=== PATIENT | male | born 1955 | race African-American/Black ===

== ENCOUNTER 2019-09-20 18:53 | Inpatient (IN) | payer MEDICARE, MEDICAID ==
[~2019-09-20] VITALS: Ht 180.3 cm; Wt 142.0 kg
[2019-09-20] MEDS ORDERED: MORPHINE SULFATE 4 MG/ML CPJ (NOT FOR IM USE) IV STA (19:56)
[2019-09-20] MEDS ORDERED: ONDANSETRON HCL 4MG/2ML INJ IV STA (19:56)
[2019-09-20] MEDS ORDERED: METRONIDAZOLE 500 MG PREMIX 100 ML IV ONE (20:00)
[2019-09-20] MEDS ORDERED: CLINDAMYCIN 600 MG in DEXTROSE 5% WATER 50 ML IV ONE (20:00)
[2019-09-20 21:44] LABS: BASOPHILS % 0.7 % (0.0-2.0); EOSINOPHILS % 0.6 % (0.0-5.0); HEMATOCRIT. 21.7 % (42.0-52.0); LYMPHOCYTES % 7.3 % (20.0-50.0); MEAN CORPUSCULAR HEMOGLOBIN 26.8 pg (28.0-32.0); MEAN CORPUSCULAR VOLUME 83.4 fL (80.0-94.0); MEAN PLATELET VOLUME 8.1 fl (7.4-10.4); NEUTROPHILS % 84.4 % (40.0-76.0); PLATELET 203 x1000/uL (130-400); RED CELL DISTRIBUTION WIDTH 20.2 % (11.6-14.6)
[2019-09-20 21:48] LABS: PROTHROMBIN TIME 10.7 sec (9.6-11.0)
[2019-09-20 21:52] LABS: CHLORIDE 115 mEq/L (98-107)
[2019-09-20] MEDS ORDERED: CEFTRIAXONE 2 G PREMIX 50 ML IV ONE (22:00)
[2019-09-20 22:01] LABS: ETHANOL BLOOD < 10 mg/dL
[2019-09-20 22:03] LABS: BETA HYDROXYBUTYRATE 0.1 mMol/L (0.0-0.3)
[2019-09-20] MEDS ORDERED: SODIUM CHLORIDE 0.9% 1000ML BAG (SEPSIS BOLUS) IV ONE (22:15)
[2019-09-20] MEDS ORDERED: SODIUM CHLORIDE 0.9% IV SCH (22:30)
[2019-09-20 23:57] LABS: CLARITY URINE CLEAR (CLEAR); COLOR URINE YELLOW (YELLOW); KETONES URINE NEGATIVE (NEGATIVE); LEUKOCYTE ESTERASE URINE NEGATIVE (NEGATIVE); NITRITE URINE NEGATIVE (NEGATIVE); OCCULT BLOOD URINE 1+ (NEGATIVE); PROTEIN URINE 3+ (NEGATIVE); SPECIFIC GRAVITY URINE 1.016 (1.005-1.030); UROBILINOGEN URINE 0.2 E.U./dL (0.2-1.0)
[2019-09-21] VITALS (12 sets, daily range): BP systolic 113–214; BP diastolic 53–123
[2019-09-21 00:17] LABS: *AMPHETAMINES SCREEN URINE NEGATIVE (NEGATIVE); *BARBITURATES SCREEN URINE NEGATIVE (NEGATIVE); *BENZODIAZEPINES SCREEN URINE NEGATIVE (NEGATIVE); *COCAINE SCREEN URINE NEGATIVE (NEGATIVE)
[2019-09-21 00:18] LABS: METHADONE URINE SCREEN NEGATIVE (NEGATIVE); OPIATES URINE SCREEN NEGATIVE (NEGATIVE); PHENCYCLIDINE URINE SCREEN NEGATIVE (NEGATIVE)
[2019-09-21 00:26] LABS: CANNABINOID URINE SCREEN NEGATIVE (NEGATIVE)
[2019-09-21] MEDS ORDERED: DOCUSATE SODIUM 100MG CAPSULE PO PRN (00:45)
[2019-09-21] MEDS ORDERED: MAGNESIUM/ALUMINUM HYDROXIDE/SIMETHICONE 30ML UDC PO PRN (00:45)
[2019-09-21] MEDS ORDERED: CLONIDINE 0.1MG TABLET PO PRN (00:45)
[2019-09-21] MEDS ORDERED: HYDRALAZINE 20MG/ML VIAL IV PRN (00:45)
[2019-09-21] MEDS ORDERED: GUAIFENESIN 200MG/10ML SUGAR FREE UDC PO PRN (00:45)
[2019-09-21] MEDS ORDERED: ACETAMINOPHEN 325MG TABLET PO PRN (00:45)
[2019-09-21] MEDS ORDERED: DIPHENHYDRAMINE 50MG/ML VIAL IV PRN (00:45)
[2019-09-21] MEDS ORDERED: DEXTROSE 50% WATER 50ML SYRINGE IV PRN ×2 (00:45)
[2019-09-21] MEDS ORDERED: ONDANSETRON HCL 4MG/2ML INJ IV PRN (00:45)
[2019-09-21 01:45] LABS: TOTAL IRON BINDING CAPACITY 196 ug/dL (250-450)
[2019-09-21] MEDS: SODIUM CHLORIDE 0.9% INJ 3ML FLUSH IVF SCH ×3 (05:52→21:49)
[2019-09-21] MEDS: CLONIDINE 0.1MG TABLET PO SCH ×3 (05:58→21:49)
[2019-09-21] MEDS: BLOOD SUGAR DIAGNOSTIC STRIP TEST SCH ×4 (07:30→21:48)
[2019-09-21] MEDS: INSULIN LISPRO 100 UNITS/ML SUBCUT SCH ×4 (08:00→21:00)
[2019-09-21] MEDS: IPRATROPIUM/ALBUTEROL 0.5-3(2.5)MG/3ML NEB HHN SCH ×2 (08:51→20:18)
[2019-09-21] MEDS: ENOXAPARIN 30MG/0.3ML SYR SUBCUT SCH (09:10)
[2019-09-21] MEDS ORDERED: PIPERACILLIN/TAZOBACTAM 3.375 G in DEXT 5% WATER 100 ML IV SCH (13:00)
[2019-09-21] MEDS: IPRATROPIUM/ALBUTEROL 0.5-3(2.5)MG/3ML NEB NEB PRN (13:09)
[2019-09-21] MEDS ORDERED: CLONIDINE 0.2MG TABLET PO PRN (14:15)
[2019-09-21] MEDS: PIPERACILLIN/TAZOBACTAM 2.25 G in DEXTROSE 5% WATER 50 ML IV SCH ×2 (14:40→21:49)
[2019-09-21] MEDS ORDERED: FUROSEMIDE 100MG/10ML VIAL IVP SCH (14:43)
[2019-09-21] MEDS ORDERED: METOLAZONE 10MG TABLET PO NR (14:44)
[2019-09-21] MEDS: GUAIFENESIN 600MG ER TABLET PO SCH (21:49)
[2019-09-21] MEDS: FAMOTIDINE 20MG TABLET PO SCH (21:49)
[2019-09-22] VITALS (16 sets, daily range): BP systolic 105–163; BP diastolic 54–84
[2019-09-22] MEDS: IPRATROPIUM/ALBUTEROL 0.5-3(2.5)MG/3ML NEB HHN SCH ×4 (01:54→20:24)
[2019-09-22] MEDS: CLONIDINE 0.1MG TABLET PO SCH ×3 (05:10→21:20)
[2019-09-22] MEDS: PIPERACILLIN/TAZOBACTAM 2.25 G in DEXTROSE 5% WATER 50 ML IV SCH ×3 (05:13→21:19)
[2019-09-22] MEDS: SODIUM CHLORIDE 0.9% INJ 3ML FLUSH IVF SCH ×3 (05:13→20:24)
[2019-09-22] MEDS: BLOOD SUGAR DIAGNOSTIC STRIP TEST SCH ×4 (07:30→20:24)
[2019-09-22] MEDS: INSULIN LISPRO 100 UNITS/ML SUBCUT SCH ×4 (08:00→20:24)
[2019-09-22] MEDS: ENOXAPARIN 30MG/0.3ML SYR SUBCUT SCH (08:47)
[2019-09-22] MEDS: GUAIFENESIN 600MG ER TABLET PO SCH ×2 (08:47→21:21)
[2019-09-22] MEDS: FUROSEMIDE 100MG/10ML VIAL IVP SCH ×2 (08:47→17:37)
[2019-09-22] MEDS ORDERED: METOLAZONE 10MG TABLET PO SCH (09:00)
[2019-09-22 09:04] LABS: BG BASE EXCESS -11.4 mmol/L (-2.0-2.0); BG CARBOXYHEMOGLOBIN 0.2 % (0.5-1.5); BG DEOXYHEMOGLOBIN 2.6 % (0.0-5.0); BG FRACTION INSPIRED OXYGEN 36; BG HCO3 ACT 14.5 mmol/L (22.0-26.0); BG METHEMOGLOBIN 0.4 % (0.0-1.5); BG OXYGEN SATURATION 97.4 % (92.0-98.5); BG OXYHEMOGLOBIN 96.8 % (94.0-97.0); BG PCO2 32.5 mmHg (35.0-45.0); BG PH 7.267 (7.350-7.450); BG PO2 111.1 mmHg (75.0-100.0); BG SAMPLE SITE RIGHT RADIAL; BG TOTAL HEMOGLOBIN 6.7 g/dL (12.0-18.0); BG VENT MODE NASAL CANNULA
[2019-09-22] MEDS: FAMOTIDINE 20MG TABLET PO SCH (21:19)
[2019-09-23] VITALS (8 sets, daily range): BP systolic 140–160; BP diastolic 59–118
[2019-09-23] MEDS: IPRATROPIUM/ALBUTEROL 0.5-3(2.5)MG/3ML NEB HHN SCH ×2 (04:15→08:28)
[2019-09-23] MEDS: SODIUM CHLORIDE 0.9% INJ 3ML FLUSH IVF SCH (05:55)
[2019-09-23] MEDS: CLONIDINE 0.1MG TABLET PO SCH (05:55)
[2019-09-23] MEDS: PIPERACILLIN/TAZOBACTAM 2.25 G in DEXTROSE 5% WATER 50 ML IV SCH (05:58)
[2019-09-23] MEDS: BLOOD SUGAR DIAGNOSTIC STRIP TEST SCH ×2 (07:30→12:28)
[2019-09-23] MEDS: INSULIN LISPRO 100 UNITS/ML SUBCUT SCH ×2 (08:00→12:29)
[2019-09-23 08:10] LABS: *CREATININE RANDOM URINE 67.3 mg/dL (Not Estab.); MICROALBUMIN RANDOM URINE 1479.4 ug/mL (Not Estab.)
[2019-09-23] MEDS: ENOXAPARIN 30MG/0.3ML SYR SUBCUT SCH (09:04)
[2019-09-23] MEDS: FUROSEMIDE 100MG/10ML VIAL IVP SCH (09:04)
[2019-09-23] MEDS: GUAIFENESIN 600MG ER TABLET PO SCH (09:08)
[2019-09-23] MEDS ORDERED: DILTIAZEM HCL 30MG TABLET PO SCH (12:00)
[2019-09-23] MEDS: CITRIC ACID/SODIUM CITRATE SOLN 30ML UDC PO SCH ×2 (12:27→12:29)
[2019-09-23] MEDS: IPRATROPIUM/ALBUTEROL 0.5-3(2.5)MG/3ML NEB NEB PRN (12:32)
== END 2019-09-23 14:25 | disposition left against medical advice (07) | DRG 871 ==
LOC: ER 18:53 → EDBD 18:53 → 5EST 22:57 → EDBEDREQTM 23:01 → EDBEDREQ 23:01 → ENRESERV 09-21 01:31
PROVIDERS: ADMIT Internal Medicine; ATTEND Internal Medicine
PROC: 5A09357 Assistance with Respiratory Ventilation, Less than 24 Consecutive Hours, Continuous Positive Airway Pressure (ICD-10-PCS; principal; 2019-09-20)
PROC: 5A09357 Assistance with Respiratory Ventilation, Less than 24 Consecutive Hours, Continuous Positive Airway Pressure (ICD-10-PCS; 2019-09-21)
DX: A41.9 Sepsis, unspecified organism (principal); J96.00 Acute respiratory failure, unspecified whether with hypoxia or hypercapnia; J69.0 Pneumonitis due to inhalation of food and vomit; E46 Unspecified protein-calorie malnutrition; J84.9 Interstitial pulmonary disease, unspecified; N17.9 Acute kidney failure, unspecified; I42.9 Cardiomyopathy, unspecified; E87.2 Acidosis; I13.0 Hypertensive heart and chronic kidney disease with heart failure and stage 1 through stage 4 chronic kidney disease, or unspecified chronic kidney disease; I50.30 Unspecified diastolic (congestive) heart failure; L97.919 Non-pressure chronic ulcer of unspecified part of right lower leg with unspecified severity; Z68.41 Body mass index [BMI] 40.0-44.9, adult; N18.3 Chronic kidney disease, stage 3 (moderate); I70.203 Unspecified atherosclerosis of native arteries of extremities, bilateral legs; L97.529 Non-pressure chronic ulcer of other part of left foot with unspecified severity; I27.20 Pulmonary hypertension, unspecified; E66.01 Morbid (severe) obesity due to excess calories; E11.22 Type 2 diabetes mellitus with diabetic chronic kidney disease; I87.2 Venous insufficiency (chronic) (peripheral); E11.621 Type 2 diabetes mellitus with foot ulcer; E11.51 Type 2 diabetes mellitus with diabetic peripheral angiopathy without gangrene; E11.42 Type 2 diabetes mellitus with diabetic polyneuropathy; D63.8 Anemia in other chronic diseases classified elsewhere; G47.30 Sleep apnea, unspecified; Z86.73 Personal history of transient ischemic attack (TIA), and cerebral infarction without residual deficits; Z87.01 Personal history of pneumonia (recurrent); Z91.14 Patient's other noncompliance with medication regimen; Z87.891 Personal history of nicotine dependence; Z71.3 Dietary counseling and surveillance
CPT/HCPCS: 36415; 36600; 71045; 76770; 80305; 80320; 81003; 82010; 82043; 82270; 82375; 82570; 82805; 82962; 83036; 83540; 83550; 83605; 83880; 84300; 84484; 93005; 93306; 93970; 94640; 94660; 96365; 96367; 96368; 96375; 99291; J0696; J1650; J1940; J2270; J2405; J2543; J3490; J7060; J7620; G0480

== ENCOUNTER 2019-10-11 14:00 | Inpatient (IN) | payer MEDICARE, MEDICAID ==
[~2019-10-11] VITALS: Ht 180.3 cm; Wt 131.5 kg
[2019-10-11] MEDS ORDERED: LABETALOL 5MG/ML SYR 20 MG/4 ML SYRINGE IV ONE (16:15)
[2019-10-11] MEDS ORDERED: VANCOMYCIN 1 G PREMIX 200 ML IV SCH (18:45)
[2019-10-11] MEDS ORDERED: PIPERACILLIN/TAZ 3.375G PREMIX 50 ML IV ONE (18:45)
[2019-10-11 18:58] LABS: BG BASE EXCESS -5.7 mmol/L (-2.0-2.0); BG CARBOXYHEMOGLOBIN 0.8 % (0.5-1.5); BG DEOXYHEMOGLOBIN 16.7 % (0.0-5.0); BG FRACTION INSPIRED OXYGEN 21; BG HCO3 ACT 18.8 mmol/L (22.0-26.0); BG METHEMOGLOBIN 0.2 % (0.0-1.5); BG OXYGEN SATURATION 83.1 % (92.0-98.5); BG OXYHEMOGLOBIN 82.3 % (94.0-97.0); BG PCO2 32.5 mmHg (35.0-45.0); BG PH 7.379 (7.350-7.450); BG PO2 50.7 mmHg (75.0-100.0); BG SAMPLE SITE RIGHT RADIAL; BG TOTAL HEMOGLOBIN 8.6 g/dL (12.0-18.0); BG VENT MODE ROOM AIR
[2019-10-11 19:36] LABS: BASOPHILS % 2.1 % (0.0-2.0); EOSINOPHILS % 4.8 % (0.0-5.0); HEMATOCRIT. 23.7 % (42.0-52.0); HEMOGLOBIN. 7.6 g/dL (14.0-18.0); LYMPHOCYTES % 16.1 % (20.0-50.0); MEAN CORPUSCULAR VOLUME 84.3 fL (80.0-94.0); MEAN PLATELET VOLUME 7.6 fl (7.4-10.4); MONOCYTES % 13.7 % (2.0-8.0); NEUTROPHILS % 63.3 % (40.0-76.0); PLATELET 293 x1000/uL (130-400); RED BLOOD CELL COUNT 2.81 mill/uL (4.7-6.1)
[2019-10-11 19:40] LABS: CHLORIDE 111 mEq/L (98-107)
[2019-10-11 19:42] LABS: INR 1.2; PROTHROMBIN TIME 11.9 sec (9.6-11.0)
[2019-10-11 19:46] LABS: PHOSPHORUS 5.9 mg/dL (2.5-4.9)
[2019-10-11] MEDS ORDERED: CLONIDINE 0.2MG TABLET PO ONE (20:30)
[2019-10-11] MEDS ORDERED: DEXTROSE 50% WATER 50ML SYRINGE IV ONE (21:00)
[2019-10-11] MEDS ORDERED: LABETALOL 5MG/ML SYR 20 MG/4 ML SYRINGE IV SCH (22:15)
[2019-10-11] MEDS ORDERED: LORAZEPAM 2MG/ML CPJ IV PRN (23:00)
[2019-10-11] MEDS ORDERED: HYDROCODONE/ACETAMINOPHEN 5/325MG TABLET PO PRN (23:00)
[2019-10-11] MEDS ORDERED: MORPHINE SULFATE 2 MG/ML CPJ (NOT FOR IM USE) IV PRN (23:00)
[2019-10-11] MEDS ORDERED: ONDANSETRON HCL 4MG/2ML INJ IV PRN (23:00)
[2019-10-11] MEDS ORDERED: CLONIDINE 0.1MG TABLET PO PRN (23:00)
[2019-10-11 23:24] VITALS: BP 158/97
[2019-10-12] VITALS (14 sets, daily range): BP systolic 128–175; BP diastolic 50–103
[2019-10-12] MEDS: AMLODIPINE 10MG TABLET PO SCH ×2 (00:49→09:00)
[2019-10-12] MEDS: THIAMINE HCL 100MG TABLET PO SCH ×2 (00:49→09:00)
[2019-10-12] MEDS ORDERED: ONDANSETRON HCL 4MG/2ML INJ IV PRN (01:15)
[2019-10-12] MEDS ORDERED: MAGNESIUM/ALUMINUM HYDROXIDE/SIMETHICONE 30ML UDC PO PRN (01:15)
[2019-10-12] MEDS ORDERED: CLONIDINE 0.2MG TABLET PO PRN (01:15)
[2019-10-12] MEDS ORDERED: ACETAMINOPHEN 325MG TABLET PO PRN (01:15)
[2019-10-12] MEDS ORDERED: DIPHENHYDRAMINE 50MG/ML VIAL IV PRN (01:15)
[2019-10-12] MEDS ORDERED: LORAZEPAM 2MG/ML CPJ IV PRN (01:15)
[2019-10-12] MEDS ORDERED: DEXTROSE 50% WATER 50ML SYRINGE IV PRN (01:15)
[2019-10-12] MEDS ORDERED: GUAIFENESIN 200MG/10ML SUGAR FREE UDC PO PRN (01:15)
[2019-10-12] MEDS ORDERED: IPRATROPIUM/ALBUTEROL 0.5-3(2.5)MG/3ML NEB NEB PRN (01:15)
[2019-10-12] MEDS ORDERED: HYDRALAZINE 20MG/ML VIAL IV PRN (01:15)
[2019-10-12] MEDS: IPRATROPIUM/ALBUTEROL 0.5-3(2.5)MG/3ML NEB NEB PRN ×3 (04:34→23:54)
[2019-10-12] MEDS: DILTIAZEM HCL 30MG TABLET PO SCH ×3 (05:16→18:38)
[2019-10-12] MEDS: SODIUM CHLORIDE 0.9% INJ 3ML FLUSH IVF SCH ×3 (05:18→22:18)
[2019-10-12] MEDS: BLOOD SUGAR DIAGNOSTIC STRIP TEST SCH ×4 (07:30→22:30)
[2019-10-12] MEDS: INSULIN LISPRO 100 UNITS/ML SUBCUT SCH ×4 (08:00→21:00)
[2019-10-12] MEDS: CALCIUM ACETATE 667MG CAPSULE PO SCH ×3 (08:00→18:35)
[2019-10-12] MEDS: ENOXAPARIN 40MG/0.4ML SYR SUBCUT SCH (09:00)
[2019-10-12] MEDS: FOLIC ACID/VITAMIN B COMP W-C TABLET PO SCH (09:00)
[2019-10-12] MEDS: OLANZAPINE 5MG TABLET PO SCH ×2 (09:00→17:00)
[2019-10-12] MEDS: HYDRALAZINE HCL 50MG TABLET PO SCH ×2 (09:00→21:52)
[2019-10-12] MEDS ORDERED: HEPARIN SODIUM 1,000 UNIT/1ML VIAL IV NR (10:45)
[2019-10-12 11:03] LABS: CREATINE KINASE MB FRACTION 4.6 ng/mL (0.5-3.6)
[2019-10-12] MEDS: IPRATROPIUM/ALBUTEROL 0.5-3(2.5)MG/3ML NEB HHN SCH ×2 (12:10→14:47)
[2019-10-12] MEDS ORDERED: FAMOTIDINE 20MG TABLET PO SCH (21:00)
[2019-10-13] VITALS (7 sets, daily range): BP systolic 133–168; BP diastolic 75–92
[2019-10-13] MEDS: IPRATROPIUM/ALBUTEROL 0.5-3(2.5)MG/3ML NEB HHN SCH ×3 (03:50→14:35)
[2019-10-13] MEDS: SODIUM CHLORIDE 0.9% INJ 3ML FLUSH IVF SCH (06:00)
[2019-10-13] MEDS: DILTIAZEM HCL 30MG TABLET PO SCH ×4 (06:00→17:06)
[2019-10-13] MEDS: BLOOD SUGAR DIAGNOSTIC STRIP TEST SCH ×3 (07:30→16:55)
[2019-10-13] MEDS: INSULIN LISPRO 100 UNITS/ML SUBCUT SCH ×2 (08:00→12:10)
[2019-10-13] MEDS: CALCIUM ACETATE 667MG CAPSULE PO SCH ×3 (08:51→17:06)
[2019-10-13] MEDS: FOLIC ACID/VITAMIN B COMP W-C TABLET PO SCH (08:51)
[2019-10-13] MEDS: AMLODIPINE 10MG TABLET PO SCH (08:51)
[2019-10-13] MEDS: HYDRALAZINE HCL 50MG TABLET PO SCH (08:51)
[2019-10-13] MEDS: THIAMINE HCL 100MG TABLET PO SCH (08:51)
[2019-10-13] MEDS: OLANZAPINE 5MG TABLET PO SCH ×2 (08:51→17:06)
[2019-10-13] MEDS: ENOXAPARIN 40MG/0.4ML SYR SUBCUT SCH (08:54)
== END 2019-10-13 17:15 | disposition left against medical advice (07) | DRG 291 ==
LOC: ER 14:00 → CANBEDREQ 17:29 → 5EST 20:04 → EDBEDREQ 20:16 → EDBEDREQSVC 20:16 → EDBEDREQTM 20:16 → ENRESERV 20:21
PROVIDERS: ADMIT Internal Medicine Nephrology; ATTEND Internal Medicine Nephrology
DX: I13.2 Hypertensive heart and chronic kidney disease with heart failure and with stage 5 chronic kidney disease, or end stage renal disease (principal); I50.33 Acute on chronic diastolic (congestive) heart failure; J96.90 Respiratory failure, unspecified, unspecified whether with hypoxia or hypercapnia; N18.6 End stage renal disease; L97.909 Non-pressure chronic ulcer of unspecified part of unspecified lower leg with unspecified severity; N17.9 Acute kidney failure, unspecified; E46 Unspecified protein-calorie malnutrition; Z68.41 Body mass index [BMI] 40.0-44.9, adult; E11.22 Type 2 diabetes mellitus with diabetic chronic kidney disease; D63.8 Anemia in other chronic diseases classified elsewhere; E11.51 Type 2 diabetes mellitus with diabetic peripheral angiopathy without gangrene; E66.01 Morbid (severe) obesity due to excess calories; F60.0 Paranoid personality disorder; I89.0 Lymphedema, not elsewhere classified; L30.9 Dermatitis, unspecified; E11.42 Type 2 diabetes mellitus with diabetic polyneuropathy; I87.8 Other specified disorders of veins; F99 Mental disorder, not otherwise specified; E11.622 Type 2 diabetes mellitus with other skin ulcer; Z53.29 Procedure and treatment not carried out because of patient's decision for other reasons; Z86.73 Personal history of transient ischemic attack (TIA), and cerebral infarction without residual deficits; Z87.891 Personal history of nicotine dependence; Z91.15 Patient's noncompliance with renal dialysis; Z91.19 Patient's noncompliance with other medical treatment and regimen; Z99.2 Dependence on renal dialysis; Z87.01 Personal history of pneumonia (recurrent); Z79.899 Other long term (current) drug therapy
CPT/HCPCS: 36415; 36600; 71045; 82375; 82550; 82553; 82805; 82962; 83735; 83880; 84100; 84484; 93005; 96365; 99291; J0360; J1644; J1650; J2543; J3370; J3490; J7620

== ENCOUNTER 2019-10-22 18:09 | Inpatient (IN) | payer MEDICARE, MEDICAID ==
[~2019-10-22] VITALS: Ht 180.3 cm; Wt 128.4 kg
[2019-10-22 21:01] LABS: BASOPHILS % 1.3 % (0.0-2.0); LYMPHOCYTES % 11.1 % (20.0-50.0); MEAN CORPUSCULAR HEMOGLOBIN 26.7 pg (28.0-32.0); MEAN CORPUSCULAR VOLUME 82.2 fL (80.0-94.0); MEAN PLATELET VOLUME 7.3 fl (7.4-10.4); MONOCYTES % 6.8 % (2.0-8.0); NEUTROPHILS % 79.8 % (40.0-76.0); PLATELET 194 x1000/uL (130-400); RED BLOOD CELL COUNT 2.59 mill/uL (4.7-6.1); RED CELL DISTRIBUTION WIDTH 18.6 % (11.6-14.6)
[2019-10-22 21:09] LABS: CHLORIDE 117 mEq/L (98-107)
[2019-10-22 21:10] LABS: HEMOGLOBIN. 6.9 g/dL (14.0-18.0)
[2019-10-22 21:11] LABS: HEMATOCRIT. 21.3 % (42.0-52.0)
[2019-10-22] MEDS ORDERED: DEXTROSE 50% WATER 50ML SYRINGE IV ONE (21:45)
[2019-10-22] MEDS ORDERED: ALBUTEROL (0.083%) 2.5MG/3ML NEB HHN ONE (21:45)
[2019-10-22] MEDS ORDERED: INSULIN REGULAR (HUMULIN R) 300UNITS/3ML IV ONE (21:45)
[2019-10-22] MEDS ORDERED: SODIUM BICARBONATE 8.4% 1 MEQ/ML 50ML SYR IV ONE (21:45)
[2019-10-22] MEDS ORDERED: SODIUM POLYSTYRENE SULFONATE 15 G/60 ML BOT PO ONE (21:45)
[2019-10-22 21:53] LABS: CLARITY URINE CLEAR (CLEAR); COLOR URINE YELLOW (YELLOW); KETONES URINE NEGATIVE (NEGATIVE); LEUKOCYTE ESTERASE URINE NEGATIVE (NEGATIVE); NITRITE URINE NEGATIVE (NEGATIVE); OCCULT BLOOD URINE 1+ (NEGATIVE); PH URINE 5.5 (4.5-8.0); PROTEIN URINE 3+ (NEGATIVE); SPECIFIC GRAVITY URINE 1.015 (1.005-1.030); UROBILINOGEN URINE 0.2 E.U./dL (0.2-1.0)
[2019-10-22] MEDS ORDERED: ALBUTEROL (0.083%) 2.5MG/3ML NEB ONE (22:13)
[2019-10-22] MEDS ORDERED: CLONIDINE 0.1MG TABLET PO ONE (22:15)
[2019-10-22] MEDS ORDERED: NITROGLYCERIN OINT 1GM/INCH UDPKT TD ONE (22:15)
[2019-10-22] MEDS ORDERED: INSULIN REGULAR (HUMULIN R) 300UNITS/3ML IV SCH (23:15)
[2019-10-23] MEDS ORDERED: DIPHENHYDRAMINE 50MG/ML VIAL IV PRN (02:30)
[2019-10-23] MEDS ORDERED: ONDANSETRON HCL 4MG/2ML INJ IV PRN (02:30)
[2019-10-23] MEDS ORDERED: MAGNESIUM/ALUMINUM HYDROXIDE/SIMETHICONE 30ML UDC PO PRN (02:30)
[2019-10-23] MEDS ORDERED: ACETAMINOPHEN 325MG TABLET PO PRN (02:30)
[2019-10-23] MEDS ORDERED: LORAZEPAM 0.5MG TABLET PO PRN (02:30)
[2019-10-23] MEDS ORDERED: DEXTROSE 50% WATER 50ML SYRINGE IV PRN (02:30)
[2019-10-23] MEDS: CLONIDINE 0.1MG TABLET PO PRN (05:38)
[2019-10-23] MEDS: SODIUM CHLORIDE 0.9% INJ 3ML FLUSH IVF SCH ×3 (06:00→21:40)
[2019-10-23 06:20] VITALS: BP 179/95
[2019-10-23] MEDS: BLOOD SUGAR DIAGNOSTIC STRIP TEST SCH ×4 (07:40→21:38)
[2019-10-23 08:00] VITALS: BP 181/102
[2019-10-23] MEDS: INSULIN LISPRO 100 UNITS/ML SUBCUT SCH ×4 (08:10→21:00)
[2019-10-23] MEDS: CALCIUM ACETATE 667MG CAPSULE PO SCH ×4 (08:10→17:53)
[2019-10-23] MEDS: HYDRALAZINE HCL 50MG TABLET PO SCH ×2 (09:17→21:39)
[2019-10-23] MEDS: OLANZAPINE 5MG TABLET PO SCH ×2 (09:18→17:00)
[2019-10-23] MEDS: IPRATROPIUM/ALBUTEROL 0.5-3(2.5)MG/3ML NEB NEB PRN ×2 (11:49→16:09)
[2019-10-23 16:00] VITALS: BP 150/84
[2019-10-23 20:00] VITALS: BP 135/89
[2019-10-24] VITALS (7 sets, daily range): BP systolic 118–158; BP diastolic 68–90
[2019-10-24] MEDS: INSULIN LISPRO 100 UNITS/ML SUBCUT SCH ×4 (08:10→20:48)
[2019-10-24] MEDS: CALCIUM ACETATE 667MG CAPSULE PO SCH ×4 (08:10→17:51)
[2019-10-24] MEDS: BLOOD SUGAR DIAGNOSTIC STRIP TEST SCH ×4 (08:26→20:49)
[2019-10-24] MEDS: OLANZAPINE 5MG TABLET PO SCH ×2 (08:55→16:18)
[2019-10-24] MEDS: HYDRALAZINE HCL 50MG TABLET PO SCH ×2 (08:55→20:49)
[2019-10-24 10:24] LABS: CHLORIDE 110 mEq/L (98-107)
[2019-10-24 10:39] LABS: HEMATOCRIT 21.8 % (42.0-52.0)
[2019-10-24] MEDS ORDERED: HEPARIN SODIUM 1,000 UNIT/1ML VIAL IV SCH (11:15)
[2019-10-24] MEDS: SODIUM CHLORIDE 0.9% INJ 3ML FLUSH IVF SCH ×2 (14:00→21:03)
[2019-10-25] VITALS: BP 107/68
[2019-10-25] MEDS: SODIUM CHLORIDE 0.9% INJ 3ML FLUSH IVF SCH ×2 (05:31→21:59)
[2019-10-25] MEDS: BLOOD SUGAR DIAGNOSTIC STRIP TEST SCH ×4 (07:59→21:00)
[2019-10-25 08:00] VITALS: BP 143/72
[2019-10-25] MEDS: INSULIN LISPRO 100 UNITS/ML SUBCUT SCH ×4 (08:10→21:00)
[2019-10-25] MEDS: CALCIUM ACETATE 667MG CAPSULE PO SCH ×4 (08:10→17:48)
[2019-10-25 08:24] LABS: PHOSPHORUS 4.3 mg/dL (2.5-4.9)
[2019-10-25 08:26] LABS: BASOPHILS % 1.2 % (0.0-2.0); EOSINOPHILS % 2.3 % (0.0-5.0); HEMATOCRIT. 21.9 % (42.0-52.0); HEMOGLOBIN. 7.2 g/dL (14.0-18.0); LYMPHOCYTES % 12.2 % (20.0-50.0); MEAN CORPUSCULAR HEMOGLOBIN 27.4 pg (28.0-32.0); MEAN CORPUSCULAR VOLUME 82.9 fL (80.0-94.0); MEAN PLATELET VOLUME 8.2 fl (7.4-10.4); MONOCYTES % 11.4 % (2.0-8.0); NEUTROPHILS % 72.9 % (40.0-76.0); PLATELET 143 x1000/uL (130-400); RED BLOOD CELL COUNT 2.64 mill/uL (4.7-6.1); RED CELL DISTRIBUTION WIDTH 18.9 % (11.6-14.6)
[2019-10-25] MEDS: OLANZAPINE 5MG TABLET PO SCH ×3 (09:00→17:00)
[2019-10-25] MEDS: HYDRALAZINE HCL 50MG TABLET PO SCH ×2 (09:48→22:00)
[2019-10-25 12:00] VITALS: BP 120/58
[2019-10-25 20:00] VITALS: BP 148/85
[2019-10-25] MEDS: IPRATROPIUM/ALBUTEROL 0.5-3(2.5)MG/3ML NEB NEB PRN (23:56)
[2019-10-26] VITALS: BP 156/84
[2019-10-26] MEDS: SODIUM CHLORIDE 0.9% INJ 3ML FLUSH IVF SCH ×3 (06:00→21:04)
[2019-10-26] MEDS: BLOOD SUGAR DIAGNOSTIC STRIP TEST SCH ×4 (06:45→21:00)
[2019-10-26] MEDS: INSULIN LISPRO 100 UNITS/ML SUBCUT SCH ×4 (07:17→21:00)
[2019-10-26 08:00] VITALS: BP 153/73
[2019-10-26] MEDS: OLANZAPINE 5MG TABLET PO SCH ×2 (09:17→19:05)
[2019-10-26] MEDS: HYDRALAZINE HCL 50MG TABLET PO SCH ×2 (09:18→21:01)
[2019-10-26] MEDS: CALCIUM ACETATE 667MG CAPSULE PO SCH ×3 (09:18→18:10)
[2019-10-26 12:00] VITALS: BP 140/70
[2019-10-26 16:00] VITALS: BP 187/101
[2019-10-26] MEDS: HYDRALAZINE 20MG/ML VIAL IV PRN (19:13)
[2019-10-26 20:00] VITALS: BP 159/88
[2019-10-27] VITALS: BP 153/79
[2019-10-27 04:00] VITALS: BP 134/83
[2019-10-27] MEDS: SODIUM CHLORIDE 0.9% INJ 3ML FLUSH IVF SCH ×3 (06:29→21:59)
[2019-10-27] MEDS: BLOOD SUGAR DIAGNOSTIC STRIP TEST SCH ×4 (07:40→21:00)
[2019-10-27 08:00] VITALS: BP 132/84
[2019-10-27] MEDS: INSULIN LISPRO 100 UNITS/ML SUBCUT SCH ×4 (08:10→21:00)
[2019-10-27] MEDS: CALCIUM ACETATE 667MG CAPSULE PO SCH ×3 (08:41→18:16)
[2019-10-27] MEDS: OLANZAPINE 5MG TABLET PO SCH ×2 (08:41→18:16)
[2019-10-27] MEDS: HYDRALAZINE HCL 50MG TABLET PO SCH ×2 (08:41→21:58)
[2019-10-27 12:00] VITALS: BP 141/80
[2019-10-27 15:04] LABS: CHLORIDE 108 mEq/L (98-107)
[2019-10-27 15:12] LABS: EOSINOPHILS % 2.7 % (0.0-5.0); HEMATOCRIT. 23.3 % (42.0-52.0); HEMOGLOBIN. 7.5 g/dL (14.0-18.0); LYMPHOCYTES % 14.1 % (20.0-50.0); MEAN CORPUSCULAR HEMOGLOBIN 27.1 pg (28.0-32.0); MEAN CORPUSCULAR VOLUME 84.2 fL (80.0-94.0); MEAN PLATELET VOLUME 8.3 fl (7.4-10.4); MONOCYTES % 11.5 % (2.0-8.0); NEUTROPHILS % 70.7 % (40.0-76.0); PLATELET 140 x1000/uL (130-400); RED BLOOD CELL COUNT 2.76 mill/uL (4.7-6.1); RED CELL DISTRIBUTION WIDTH 18.9 % (11.6-14.6)
[2019-10-27 16:00] VITALS: BP 147/83
[2019-10-27 20:00] VITALS: BP 168/76
[2019-10-28] VITALS: BP 160/80
[2019-10-28 04:00] VITALS: BP 154/82
[2019-10-28] MEDS: SODIUM CHLORIDE 0.9% INJ 3ML FLUSH IVF SCH ×3 (06:14→21:58)
[2019-10-28] MEDS: BLOOD SUGAR DIAGNOSTIC STRIP TEST SCH ×4 (07:40→21:58)
[2019-10-28] MEDS: INSULIN LISPRO 100 UNITS/ML SUBCUT SCH ×4 (08:10→22:02)
[2019-10-28] MEDS: CALCIUM ACETATE 667MG CAPSULE PO SCH ×4 (08:59→18:25)
[2019-10-28] MEDS: OLANZAPINE 5MG TABLET PO SCH ×2 (08:59→18:25)
[2019-10-28] MEDS: HYDRALAZINE HCL 50MG TABLET PO SCH ×2 (08:59→21:57)
[2019-10-28 18:00] VITALS: BP 141/85
[2019-10-28 20:00] VITALS: BP 185/93
[2019-10-28] MEDS: CLONIDINE 0.1MG TABLET PO PRN (21:57)
[2019-10-29] VITALS: BP 169/93
[2019-10-29 04:00] VITALS: BP 183/87
[2019-10-29] MEDS: BLOOD SUGAR DIAGNOSTIC STRIP TEST SCH ×4 (07:40→21:00)
[2019-10-29] MEDS: INSULIN LISPRO 100 UNITS/ML SUBCUT SCH ×4 (07:45→21:00)
[2019-10-29 08:00] VITALS: BP 180/80
[2019-10-29] MEDS: CALCIUM ACETATE 667MG CAPSULE PO SCH ×4 (08:10→17:39)
[2019-10-29] MEDS: HYDRALAZINE HCL 50MG TABLET PO SCH ×2 (09:00→22:19)
[2019-10-29] MEDS: OLANZAPINE 5MG TABLET PO SCH ×2 (09:27→17:00)
[2019-10-29 12:00] VITALS: BP 166/65
[2019-10-29] MEDS: SODIUM CHLORIDE 0.9% INJ 3ML FLUSH IVF SCH ×2 (13:51→22:19)
[2019-10-29 14:06] LABS: BASOPHILS % 0.9 % (0.0-2.0); EOSINOPHILS % 3.4 % (0.0-5.0); HEMATOCRIT. 26.5 % (42.0-52.0); HEMOGLOBIN. 8.4 g/dL (14.0-18.0); LYMPHOCYTES % 15.1 % (20.0-50.0); MEAN CORPUSCULAR HEMOGLOBIN 26.8 pg (28.0-32.0); MEAN CORPUSCULAR VOLUME 84.3 fL (80.0-94.0); MEAN PLATELET VOLUME 7.9 fl (7.4-10.4); MONOCYTES % 14.3 % (2.0-8.0); NEUTROPHILS % 66.3 % (40.0-76.0); PLATELET 134 x1000/uL (130-400); RED BLOOD CELL COUNT 3.15 mill/uL (4.7-6.1); RED CELL DISTRIBUTION WIDTH 18.7 % (11.6-14.6)
[2019-10-29 14:20] LABS: PHOSPHORUS 4.8 mg/dL (2.5-4.9)
[2019-10-29 16:00] VITALS: BP 175/92
[2019-10-29 20:00] VITALS: BP 186/90
[2019-10-29] MEDS: CLONIDINE 0.1MG TABLET PO PRN (22:19)
[2019-10-30 04:00] VITALS: BP 140/82
[2019-10-30] MEDS: SODIUM CHLORIDE 0.9% INJ 3ML FLUSH IVF SCH ×3 (06:52→21:31)
[2019-10-30] MEDS: BLOOD SUGAR DIAGNOSTIC STRIP TEST SCH (06:57)
[2019-10-30] MEDS: INSULIN LISPRO 100 UNITS/ML SUBCUT SCH (06:58)
[2019-10-30 08:00] VITALS: BP 177/93
[2019-10-30] MEDS: CALCIUM ACETATE 667MG CAPSULE PO SCH ×3 (09:21→16:44)
[2019-10-30] MEDS: HYDRALAZINE HCL 50MG TABLET PO SCH ×2 (09:22→21:31)
[2019-10-30] MEDS: OLANZAPINE 5MG TABLET PO SCH ×2 (09:22→16:43)
[2019-10-30] MEDS: CLONIDINE 0.1MG TABLET PO PRN (14:59)
[2019-10-30 16:00] VITALS: BP 191/93
[2019-10-30] MEDS: HYDRALAZINE 20MG/ML VIAL IV PRN (16:40)
[2019-10-30 20:00] VITALS: BP 135/86
[2019-10-31] VITALS: BP 132/62
[2019-10-31 04:00] VITALS: BP 149/72
[2019-10-31] MEDS: SODIUM CHLORIDE 0.9% INJ 3ML FLUSH IVF SCH ×3 (06:56→21:12)
[2019-10-31 08:00] VITALS: BP 166/90
[2019-10-31] MEDS: CALCIUM ACETATE 667MG CAPSULE PO SCH ×4 (08:10→16:32)
[2019-10-31] MEDS: HYDRALAZINE HCL 50MG TABLET PO SCH ×2 (09:00→21:09)
[2019-10-31] MEDS: OLANZAPINE 5MG TABLET PO SCH ×2 (09:25→16:32)
[2019-10-31 11:46] LABS: BASOPHILS % 1.3 % (0.0-2.0); EOSINOPHILS % 3.2 % (0.0-5.0); HEMATOCRIT. 21.8 % (42.0-52.0); HEMOGLOBIN. 7.1 g/dL (14.0-18.0); LYMPHOCYTES % 16.4 % (20.0-50.0); MEAN CORPUSCULAR HEMOGLOBIN 27.2 pg (28.0-32.0); MEAN CORPUSCULAR VOLUME 83.6 fL (80.0-94.0); MEAN PLATELET VOLUME 8.3 fl (7.4-10.4); MONOCYTES % 12.8 % (2.0-8.0); NEUTROPHILS % 66.3 % (40.0-76.0); PLATELET 123 x1000/uL (130-400); RED BLOOD CELL COUNT 2.61 mill/uL (4.7-6.1); RED CELL DISTRIBUTION WIDTH 18.9 % (11.6-14.6)
[2019-10-31 12:00] VITALS: BP 165/85
[2019-10-31 12:07] LABS: PHOSPHORUS 4.1 mg/dL (2.5-4.9)
[2019-10-31 17:11] VITALS: BP 153/82
[2019-10-31 20:00] VITALS: BP 145/76
[2019-11-01] VITALS: BP 142/68
[2019-11-01 04:00] VITALS: BP 177/86
[2019-11-01] MEDS: SODIUM CHLORIDE 0.9% INJ 3ML FLUSH IVF SCH ×3 (06:03→21:30)
[2019-11-01 08:00] VITALS: BP 164/90
[2019-11-01] MEDS: CALCIUM ACETATE 667MG CAPSULE PO SCH ×4 (08:10→18:10)
[2019-11-01] MEDS: OLANZAPINE 5MG TABLET PO SCH ×2 (08:55→17:25)
[2019-11-01] MEDS: HYDRALAZINE HCL 50MG TABLET PO SCH ×2 (08:55→21:30)
[2019-11-01 12:00] VITALS: BP 193/91
[2019-11-01 20:00] VITALS: BP 159/72
[2019-11-02] VITALS: BP 156/82
[2019-11-02 04:00] VITALS: BP 170/82
[2019-11-02] MEDS: SODIUM CHLORIDE 0.9% INJ 3ML FLUSH IVF SCH ×2 (05:17→14:00)
[2019-11-02] MEDS: HYDRALAZINE 20MG/ML VIAL IV PRN ×2 (05:17→18:37)
[2019-11-02 08:00] VITALS: BP 164/74
[2019-11-02] MEDS: OLANZAPINE 5MG TABLET PO SCH ×2 (08:24→09:14)
[2019-11-02] MEDS: HYDRALAZINE HCL 50MG TABLET PO SCH (08:24)
[2019-11-02] MEDS: CALCIUM ACETATE 667MG CAPSULE PO SCH ×3 (08:24→18:10)
[2019-11-02 12:00] VITALS: BP 177/100
[2019-11-02 16:00] VITALS: BP 169/89
[2019-11-02] MEDS: CLONIDINE 0.1MG TABLET PO PRN (17:32)
[2019-11-02 18:50] VITALS: BP 133/73
== END 2019-11-02 19:18 | disposition home or self-care (01) | DRG 291 ==
LOC: ER 18:09 → 7WST 22:26 → ENRESERV 10-23 03:16
PROVIDERS: ADMIT Internal Medicine; ATTEND Internal Medicine
PROC: 30233N1 Transfusion of Nonautologous Red Blood Cells into Peripheral Vein, Percutaneous Approach (ICD-10-PCS; principal; 2019-10-24)
PROC: 5A1D70Z Performance of Urinary Filtration, Intermittent, Less than 6 Hours Per Day (ICD-10-PCS; 2019-10-24)
PROC: 5A1D70Z Performance of Urinary Filtration, Intermittent, Less than 6 Hours Per Day (ICD-10-PCS; 2019-10-25)
PROC: 5A1D70Z Performance of Urinary Filtration, Intermittent, Less than 6 Hours Per Day (ICD-10-PCS; 2019-10-27)
PROC: 5A1D70Z Performance of Urinary Filtration, Intermittent, Less than 6 Hours Per Day (ICD-10-PCS; 2019-10-29)
PROC: 5A1D70Z Performance of Urinary Filtration, Intermittent, Less than 6 Hours Per Day (ICD-10-PCS; 2019-10-31)
PROC: 5A1D70Z Performance of Urinary Filtration, Intermittent, Less than 6 Hours Per Day (ICD-10-PCS; 2019-11-02)
DX: I13.2 Hypertensive heart and chronic kidney disease with heart failure and with stage 5 chronic kidney disease, or end stage renal disease (principal); I50.33 Acute on chronic diastolic (congestive) heart failure; N18.6 End stage renal disease; E43 Unspecified severe protein-calorie malnutrition; E87.2 Acidosis; E87.70 Fluid overload, unspecified; E87.5 Hyperkalemia; D63.1 Anemia in chronic kidney disease; E11.22 Type 2 diabetes mellitus with diabetic chronic kidney disease; E11.51 Type 2 diabetes mellitus with diabetic peripheral angiopathy without gangrene; L97.529 Non-pressure chronic ulcer of other part of left foot with unspecified severity; F99 Mental disorder, not otherwise specified; E11.621 Type 2 diabetes mellitus with foot ulcer; E66.9 Obesity, unspecified; Z86.73 Personal history of transient ischemic attack (TIA), and cerebral infarction without residual deficits; Z99.2 Dependence on renal dialysis; Z91.19 Patient's noncompliance with other medical treatment and regimen; Z68.39 Body mass index [BMI] 39.0-39.9, adult; Z87.01 Personal history of pneumonia (recurrent); Z87.891 Personal history of nicotine dependence; Z91.15 Patient's noncompliance with renal dialysis
CPT/HCPCS: 36415; 71045; 80048; 80053; 81003; 82962; 83735; 83880; 84100; 84484; 85014; 85018; 85025; 86850; 86860; 86870; 86880; 86900; 86901; 86905; 86906; 86920; 86971; 93005; 94644; 96374; 99285; C1893; J0360; J1644; J3490; J7070; J7611; J7620; P9016

== ENCOUNTER 2020-01-07 19:26 | Emergency (ER) | payer MEDICARE, MEDICAID ==
[~2020-01-07] VITALS: Ht 180.3 cm; Wt 104.0 kg
[2020-01-07 20:56] VITALS: BP 158/87
== END 2020-01-07 20:56 | disposition home or self-care (01) ==
LOC: ER 19:31
DX: I12.0 Hypertensive chronic kidney disease with stage 5 chronic kidney disease or end stage renal disease (principal); E11.22 Type 2 diabetes mellitus with diabetic chronic kidney disease; N18.6 End stage renal disease; E78.00 Pure hypercholesterolemia, unspecified; Z99.2 Dependence on renal dialysis
CPT/HCPCS: 99283